=== PATIENT | female | born 1990 | race Caucasian/White ===

== ENCOUNTER 2017-04-22 08:12 | Emergency (ER) | payer OTHER ==
[~2017-04-22] VITALS: Ht 172.7 cm; Wt 70.4 kg
[2017-04-22 08:14] VITALS: BP 122/74; PULSE 110; RESP 18; O2SAT 100
--- NOTE | 2017-04-22 08:52 | ED.REPORT ---
HPI-Preg Under 20 Weeks Date of Service Apr 22, 2017 ED Provider: Dr. Leal The pt is a 26 y/o six weeks female () with no pertinent hx who presents to the ED complaining of vaginal bleeding, onset this morning. Her bleeding is slightly less than her typical period. Associated sx include mild abdominal cramps. She denies abnormal vaginal discharge and fever. She is Rh positive. Nursing Notes Stated Complaint: 6 WK , BLEEDING AND CRAMPING Chief Complaint: Female Abdominal Pain Nursing Notes Reviewed: Yes Allergies: Coded Allergies: iodine (Verified Adverse Reaction, Unknown, 04/22/17) Uncoded Allergies: PENNICILLIN (Allergy, Intermediate, 04/22/17) No Active Prescriptions or Reported Meds General Time Seen by Provider: 08:52 Chief Complaint Vaginal bleeding Hx Obtained From: Patient Arrived By: Walk-in Onset Occurred: 1 - 4 hours ago Symptom Duration: Since onset Location: : Abdomen lower Quality: Cramping Radiation: : None Severity: Current: Mild Severity: Maximum: Mild Recent Healthcare: No recent doctor visit Similar Sx Previous: No Past Medical History Past Medical History none reported Past Surgical History none reported Smoking History Never Smoker Social History Other Social History: Good social support Ambulatory Status Independent Review of Systems Constitutional: Denies: Fever GI: Reports: Abdominal pain (mild abdominal cramping) Female: Reports: , Vaginal bleeding - abnl, Denies: Vaginal discharge Complete sys rev & neg: except as marked. Physical Exam Initial Vital Signs Vital Signs (First) Date Time Temp Pulse Resp B/P Pulse Ox O2 Delivery O2 Flow Rate FiO2 04/22/17 08:14 36.9 110 18 122/74 100 04/22/17 10:16 Room Air Initial VS: Reviewed Head / Eyes: Atraumatic, Normocephalic Neck: Supple, Non-tender, Full range of motion Respiratory: No respiratory distress Cardiovascular: Intact distal pulses Extremities: Vascular intact, Neuro intact, No swelling, No tenderness Skin: Warm, Dry, No cyanosis Neurologic: Alert, Oriented, Nonfocal General/Constitutional: Awake, Alert, No acute distress, Well appearing, Cooperative Abdomen: Atraumatic, Soft, Non-tender, No guarding, No rebound, BS normoactive Interpretation & Diagnostics Lab Results Interpretation Result Diagram: 04/22/17 0918 04/22/17 0918 Test 04/22/17 08:30 04/22/17 09:18 Urine Color Yellow (YELLOW) Urine Appearance Cloudy (CLEAR,HAZY) Urine pH 6.0 (5.0-8.0) Urine Specific [place] 1.030 (1.003-1.035) Urine Protein Negativemg/dL (NEG,TRACE) Urine Glucose (UA) Negativemg/dL (NEGATIVE) Urine Ketones Negativemg/dL (NEGATIVE) Urine Occult Blood Large (NEGATIVE) Urine Nitrite Negative (NEGATIVE) Urine Bilirubin Negative (NEGATIVE) Urine Urobilinogen Normalmg/dL (NORMAL) Urine Leukocyte Esterase Negative (NEGATIVE) Urine RBC 0-2/hpf (0-2) Urine WBC 0-5/hpf (0-5) Urine Epithelial Cells Few/hpf (NONE-MOD) Urine Crystals Amorphous urates (NONE Urine Bacteria None/hpf (NONE-FEW) Urine Hyaline Casts None/lpf (NONE) Urine Granular Casts None seen (NONE SEEN) Urine Waxy Casts None seen (NONE SEEN) Urine Red Blood Cell Casts None seen (NONE SEEN) Urine White Blood Cell Casts None seen (NONE SEEN) Urine Mucus None seen (None Seen) Urine Trichomonas None seen (NONE SEEN) Urine Yeast None (NONE SEEN) Urinalysis Comment None Urine Culture Reflexed Not indicated White Blood Count 7.5th/mm3 (3.8-10.1) Red Blood Count 4.35mil/mm3 (3.90-5.20) Hemoglobin 12.8g/dL (12.0-15.6) Hematocrit 38.8% (35.0-46.0) Mean Corpuscular Volume 89.2fL (81-100) Mean Corpuscular Hemoglobin 29.4pg (27.0-35.0) Mean Corpuscular Hemoglobin Concent 33.0% (32.0-37.0) Red Cell Distribution Width 13.3% (12.3-15.4) Platelet Count 277bil/L (150-400) Neutrophils (%) (Auto) 70.9% (40-74) Lymphocytes (%) (Auto) 22.2% (14-46) Monocytes (%) (Auto) 5.8% (4-12) Eosinophils (%) (Auto) 0.5% (0-5) Basophils (%) (Auto) 0.5% (0-3) Sodium Level 138mEq/L (134-144) Potassium Level 3.9mEq/L (3.5-5.2) Chloride Level 103mEq/L (97-108) Carbon Dioxide Level 20mmol/L (18-29) Blood Urea Nitrogen 9mg/dL (6-20) Creatinine 0.56mg/dL (0.57-1.00) Estimat Glomerular Filtration Rate 187mL/min (>59) Glucose Level 99mg/dL (60-99) Calcium Level 9.1mg/dL (8.5-10.1) HCG Beta Subunit 35.93mIU/mL US Focused OB IMPRESSION: 1. No intrauterine gestation identified. Recommend short-term sonographic and clinical followup with serial beta-hCG levels. 2. No evidence of ectopic is identified. Please note ultrasound cannot exclude ectopic . Dictated by: Isaiah Carr M.D. on 04/22/2017 at 11:25 Approved by: Isaiah Carr M.D. on 04/22/2017 at 11:28 Exam Performed by: Radiologist Re-Eval/Medical Decision Med Decision/Clinical Course Probable threatened miscarriage, no evidence of ectopic on ultrasound, quantitative hCG is very low. Bleeding has been mild. Patient agrees to follow-up with her [employer] in 48 hours or return to the ER sooner if worse Source of Hx: Old records Re-Evaluation/Progress #1: Time of Eval: 10:16 Re-Evaluation/Progress Note: Rechecked pt. Discussed lab results. Informed the pt US result and HcG level is pending. She understands. All questions answered. Re-Evaluation/Progress #2: Time of Eval: 11:36 Re-Evaluation/Progress Note: Rechecked pt. She reports feeling better. She has been is contact with her PCP and has a follow up appointment scheduled. She declined the offer to call Dr. Lee and schedule an appointment sooner. She would like to be discharged. Discussed imaging results, diagnosis and plan to discharge. Pt understands and agrees with the plan. F/U instruction and RTER warning given. All questions addressed Counseled Regarding: Diagnosis, Lab results, Need for follow-up, When/why to return to ED Discharge & Departure Primary Impression: Weeks of gestation: less than 8 weeks Qualified Code: Z3A.01 - Less than 8 weeks gestation of Additional Impression: Threatened miscarriage in early Disposition: Home Discharge Condition All VS Reviewed: Yes Condition: Stable Patient Instructions: Threatened Miscarriage (ED) Additional Instructions: While in the ER you were evaluated for early bleeding. We are concerned that you may be having a miscarriage. You will need further testing by your [employer]GER in the next 48 hours for repeat hormone levels and possibly further exam. Return to the ER as needed for severe pain, heavy vaginal bleeding, or other concerns. Referrals: Harrison Hdz ND (PCP) Cuco Lee MD Scribe Attestation Portions of this note were transcribed by Ole Morejon. I,, personally performed the history,physical exam and medical decision-making;I reviewed and confirmed the accuracy of the information in the transcribed note. Signed by Libby Ames. 04/22/17 copies to: Cuco Lee MD; Harrison Hdz ND, Timothy S DO Apr 22, 2017 08:52 Ole Morejon Apr 22, 2017 09:07
[2017-04-22] MEDS ORDERED: 0.9% Sodium Chloride 1,000 ML IV ONE (08:55)
[2017-04-22 09:54] LABS: Mean Corpuscular Hemoglobin 29.4 pg (27.0-35.0); Mean Corpuscular Volume 89.2 fL (81-100); NEUTROPHILS % (AUTO) 70.9 % (40-74); Platelet Count 277 bil/L (150-400)
[2017-04-22 09:55] LABS: BASOPHILS % (AUTO) 0.5 % (0-3); EOSINOPHILS % (AUTO) 0.5 % (0-5); MONOCYTES % (AUTO) 5.8 % (4-12)
[2017-04-22 10:03] LABS: APPEARANCE,URINE CLOUDY (CLEAR,HAZY); COLOR,URINE YELLOW (YELLOW); OCCULT BLOOD,URINE LARGE (NEGATIVE); UROBILINOGEN,URINE NORMAL (NORMAL)
[2017-04-22 10:16] VITALS: BP 117/81; PULSE 108; RESP 14; O2SAT 100
--- NOTE | 2017-04-22 11:30 | DRSVH ---
+/- 7 days from 14 weeks to 15 weeks 6 days gestation, +/- 10 days from 16 weeks to 21 weeks 6 days g estation, +/- 2 weeks from 22 weeks to 27 weeks 6 days gestation, +/- 3 weeks for 28 weeks gestation or later. PROCEDURE: US OB<14 WKS INDICATIONS: Pain, OUTSIDE/PRIOR DATING DATA: Last menstrual period (LMP): 03/04/2017. LMP-based estimated date of delivery (JANINA): 12/09/2017. First dating scan (date and location): 04/22/2017. TECHNIQUE: Real-time scanning was performed of the fetus and maternal pelvic organs, with image documentation. Endovaginal scanning was also performed to better visualize the fetus and maternal ovaries. COMPARISON: None. FINDINGS: Embryo: [employer] Ultrasound Procedure Report Early Gestation [employer] No intrauterine gestation identified. Comments: A normal yolk sac is noted. No perigestational bleeds. Measurement variability in dating: +/- 4 weeks by LMP, +/- 7 days by mean sac diameter (use before 6 weeks gestation if crown-rump length not able to be measured), +/- 5 days by crown-rump length (up t o 8 weeks 6 days gestation), +/- 7 days by crown-rump length (from 9 weeks to 13 weeks 6 days gestati on). Maternal organs: Ovaries there is a 15 mm hypoechoic right ovarian mass most consistent with a benig n cyst. Left ovary is grossly normal.. Limited images through the kidneys demonstrate no hydronephro sis. IMPRESSION: 1. No intrauterine gestation identified. Recommend short-term sonographic and clinical followup with serial beta-hCG levels. 2. No evidence of ectopic is identified. Please note ultrasound cannot exclude ectopic preg skip. Dictated by: Isaiah Carr M.D. on 04/22/2017 at 11:25 Approved by: Isaiah Carr M.D. on 04/22/2017 at 11:28
[2017-04-22 12:04] VITALS: BP 108/67; PULSE 82; O2SAT 98
== END 2017-04-22 12:05 | disposition home or self-care (01) ==
LOC: SED 08:12
DX: O20.0 Threatened abortion (principal); Z3A.01 Less than 8 weeks gestation of pregnancy; Z88.0 Allergy status to penicillin; Z88.8 Allergy status to other drugs, medicaments and biological substances
CPT/HCPCS: 36415; 76801; 80048; 81000; 84702; 85025; 96360; 99284; J7030